=== PATIENT | female | born 1945 | race Two or more races ===

== ENCOUNTER → 2017-02-16 | Outpatient (CLI) | payer MEDICARE, OTHER ==
--- NOTE | 2017-02-16 12:06 | RADIOLOGY REPORT (SQ) ---
EXAM DESCRIPTION: MRI HEAD WITHOUT COMPLETED DATE/TIME: 02/16/2017 11:48 am REASON FOR STUDY: EXTREMITY WEAKNESS (M62.81) M62.81 MUSCLE WEAKNESS (GENERALIZED) R09.89 OTH SYMP TOMS AND SIGNS INVOLVING THE CIRC AND RESP SY G93.89 OTHER SPECIFIED DISORDERS OF BRAIN COMPARISON: None. TECHNIQUE: Multiplanar imaging includes non-contrasted T1, T2, FLAIR, and diffusion with ADC map seq uences. Images stored on PACS. LIMITATIONS: None. FINDINGS: ANATOMY: No anomalies. Normal vascular flow voids. Pituitary fossa normal. CSF SPACES: Normal in size and contour. No hemorrhage. CEREBRUM: There is abnormal signal in the left aspect of the thalamus. This is consistent with chron ic small vessel disease. No focal mass, hemorrhage or midline shift. POSTERIOR FOSSA: There is abnormal signal in the chacorta consistent with chronic small vessel disease. DIFFUSION IMAGING: Negative for acute or sub-acute infarction. ORBITS: No masses. Globes normal. PARANASAL SINUSES: No fluid levels. Mucosa normal. OTHER: No other significant finding. IMPRESSION: Mild small vessel ischemic changes. No acute findings. TECHNICAL DOCUMENTATION: JOB ID: [id number]- All Rights Reserved
--- NOTE | 2017-02-16 12:08 | RADIOLOGY REPORT (SQ) ---
EXAM DESCRIPTION: MRA HEAD WITHOUT COMPLETED DATE/TIME: 02/16/2017 11:48 am REASON FOR STUDY: MUSCLE WEAKNESS (M62.81) M62.81 MUSCLE WEAKNESS (GENERALIZED) R09.89 OTH SYMPTOM S AND SIGNS INVOLVING THE CIRC AND RESP SY G93.89 OTHER SPECIFIED DISORDERS OF BRAIN COMPARISON: None. TECHNIQUE: Axial 3-D aemi-fa-gfmktn acquisition imaging performed through the brain in the area of t he [place] of [place]. Images reformatted using 3-D MIPS. LIMITATIONS: None. FINDINGS: SOURCE IMAGES: No unexpected findings on source images. No large masses. 3-D MIP: No aneurysm. No occlusions. No significant stenosis. OTHER: No other significant finding. IMPRESSION: NORMAL MRA OF THE [place] OF [place]. TECHNICAL DOCUMENTATION: JOB ID: [id number]- All Rights Reserved
--- NOTE | 2017-02-16 13:17 | RADIOLOGY REPORT (SQ) ---
EXAM DESCRIPTION: CAROTID DOPPLER COMPLETED DATE/TIME: 02/16/2017 1:09 pm REASON FOR STUDY: BRUIT M62.81 MUSCLE WEAKNESS (GENERALIZED) R09.89 OTH SYMPTOMS AND SIGNS INVOLVI NG THE CIRC AND RESP SY G93.89 OTHER SPECIFIED DISORDERS OF BRAIN COMPARISON: None. TECHNIQUE: Grayscale ultrasound, Doppler velocity and spectra, and color Doppler images acquired of the extra-cranial carotid and vertebral arteries. Images stored on PACS. LIMITATIONS: None. FINDINGS: RIGHT CAROTID CCA Velocities: Within normal limits. ICA Velocities Peak systolic 0.97 m/s. End diastolic 0.28 m/s. Proximal ICA/CCA peak systolic ratio 1.2. There is calcified plaque in the carotid bulb proximal ICA. LEFT CAROTID CCA Velocities: Within normal limits. ICA Velocities Peak systolic 0.89 m/s. End diastolic 0.34 m/s. Proximal ICA/CCA peak systolic ratio 1.1. There is complex plaque in the proximal left ICA. VERTEBRAL ARTERIES: Antegrade flow. Normal waveforms. SUBCLAVIAN ARTERIES: No finding. OTHER: No other significant finding. IMPRESSION: NO HEMODYNAMICALLY SIGNIFICANT STENOSIS. COMMENT: Quality ID #[id number]: Velocity criteria are extrapolated from the diameter data as defined by t he Society of Radiologists in Ultrasound Consensus Conference. Radiology 2003: 229; 340-346. TECHNICAL DOCUMENTATION: JOB ID: [id number] [employer]- All Rights Reserved
== END ==
LOC: RAD 09:29
PROVIDERS: ATTEND Internal Medicine
DX: M62.81 Muscle weakness (generalized) (principal); R09.89 Other specified symptoms and signs involving the circulatory and respiratory systems; G93.89 Other specified disorders of brain
CPT/HCPCS: 70544; 70551; 93880